=== PATIENT | female | born 1940 | race Caucasian/White ===

== ENCOUNTER 2020-12-26 16:29 | Emergency (ER) | payer OTHER, MEDICARE ==
[~2020-12-26] VITALS: Ht 162 cm; Wt 67.0 kg
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
[2020-12-26] MEDS ORDERED: fentaNYL INJ 100 MCG/2 ML AMP IVP ONE ×3 (16:45→19:00)
[2020-12-26] MEDS ORDERED: fentaNYL INJ 100 MCG/2 ML AMP ONE (16:51)
[2020-12-26 16:53] LABS: WHITE BLOOD COUNT 7.9 10^3/uL (4.3-11.0)
[2020-12-26 16:54] LABS: BASOPHILS % (AUTO) 0 % (0-10); EOSINOPHILS # (AUTO) 0.1 10^3/uL (0.0-0.3); EOSINOPHILS % (AUTO) 1 % (0-10); HEMATOCRIT 39 % (35-52); HEMOGLOBIN 12.7 g/dL (11.5-16.0); LYMPHOCYTES # (AUTO) 1.8 X 10^3 (1.0-4.0); LYMPHOCYTES % (AUTO) 23 % (12-44); MEAN CORPUSCULAR HEMOGLOBIN 33 pg (25-34); MEAN CORPUSCULAR HGB CONC 33 g/dL (32-36); MEAN CORPUSCULAR VOLUME 101 fL (80-99); MEAN PLATELET VOLUME 10.7 fL (9.0-12.2); MONOCYTES # (AUTO) 0.5 X 10^3 (0.0-1.0); MONOCYTES % (AUTO) 6 % (0-12); NEUTROPHILS # (AUTO) 5.2 X 10^3 (1.8-7.8); NEUTROPHILS % (AUTO) 66 % (42-75); PLATELET COUNT 204 10^3/uL (130-400)
[2020-12-26 17:05] LABS: POTASSIUM 4.1 MMOL/L (3.6-5.0)
[2020-12-26 17:06] LABS: CALCIUM 9.6 MG/DL (8.5-10.1); CREATININE SERUM 0.84 MG/DL (0.60-1.30)
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
[2020-12-26 19:41] VITALS: BP 153/86
== END 2020-12-26 19:41 | disposition short-term general hospital (02) ==
LOC: ER FS 16:31
DX: S82.842A Displaced bimalleolar fracture of left lower leg, initial encounter for closed fracture (principal); S82.141A Displaced bicondylar fracture of right tibia, initial encounter for closed fracture; S52.692A Other fracture of lower end of left ulna, initial encounter for closed fracture; S52.592A Other fractures of lower end of left radius, initial encounter for closed fracture; S20.312A Abrasion of left front wall of thorax, initial encounter; M54.9 Dorsalgia, unspecified; V43.53XA Car driver injured in collision with pick-up truck in traffic accident, initial encounter
CPT/HCPCS: 29105; 29515; 36415; 51702; 71045; 73110; 73562; 73610; 80048; 85025

== ENCOUNTER → 2022-01-11 | Outpatient (CLI) | payer OTHER, MEDICARE | LOC: LABNPT 15:32 | PROVIDERS: ATTEND Registered Nurse Emergency | DX: Z01.89 Encounter for other specified special examinations (principal) ==